=== PATIENT | male | born 1995 | race American Indian/Alaskan Native ===

== ENCOUNTER 2016-12-28 02:19 | Emergency (ER) | payer SELFPAY ==
[2016-12-28 03:06] VITALS: BP 157/87
[2016-12-28] MEDS ORDERED: BABY ASPIRIN PO ONE (03:07)
[2016-12-28 03:38] LABS: Basophils % (Auto) 0.4 % (0.0-1.8); Eosinophils % (Auto) 0.3 % (0.0-4.3); Hematocrit 47.4 % (35.5-45.6); Hemoglobin 16.4 gm/dl (11.8-15.2); Mean Corpuscular HGB Conc 35 % (32-34); Mean Corpuscular Hemoglobin 33 pg (28-32); Mean Corpuscular Volume 94 fl (84-94); Platelet Count 275 K/mm3 (140-440); Red Blood Count 5.06 M/mm3 (3.65-5.03); Red Cell Distribution Width 12.6 % (13.2-15.2); White Blood Count 13.3 K/mm3 (4.5-11.0)
[2016-12-28 03:44] LABS: Anion Gap 20 mmol/L; Blood Urea Nitrogen 12 mg/dL (9-20); Calcium 9.2 mg/dL (8.4-10.2); Carbon Dioxide 20 mmol/L (22-30); Chloride 101.6 mmol/L (98-107); Glucose 100 mg/dL (75-100); Sodium 138 mmol/L (137-145)
--- NOTE | 2016-12-29 21:15 | ED Elopement Review ---
ED Pt Elopement review - Results review Lab results: Laboratory Tests 12/28/16 12/28/16 03:12 03:12 WBC 13.3 H RBC 5.06 H Hgb 16.4 H Hct 47.4 H MCV 94 MCH 33 H MCHC 35 H RDW 12.6 L Plt Count 275 Lymph % (Auto) 8.4 L [place] % (Auto) 5.6 Eos % (Auto) 0.3 Baso % (Auto) 0.4 Lymph # 1.1 L [place] # 0.7 Eos # 0.0 Baso # 0.0 Seg Neutrophils % 85.3 H Seg Neutrophils # 11.3 H Sodium 138 Potassium 4.0 Chloride 101.6 Carbon Dioxide 20 L Anion Gap 20 BUN 12 Creatinine 1.0 Estimated GFR > 60 BUN/Creatinine Ratio 12.00 Glucose 100 Calcium 9.2 Troponin T < 0.010 - Call Back decision Pt Call Back Decision: Call pt to return to ED BIMAL (HR of 120 x 2 checks)
== END 2016-12-28 04:37 | disposition left against medical advice (07) ==
LOC: ED 02:19
DX: R07.9 Chest pain, unspecified (principal); R06.02 Shortness of breath; Z53.21 Procedure and treatment not carried out due to patient leaving prior to being seen by health care provider
CPT/HCPCS: 36415; 80048; 84484; 85025; 93005; 93010

== ENCOUNTER 2017-10-16 15:05 | Emergency (ER) | payer SELFPAY ==
[2017-10-16 17:04] LABS: Bacteria,Urine 1+ /HPF (Negative); Bilirubin,Urine NEG (Negative); Blood,Urine NEG (Negative); Color,Urine Yellow (Yellow); Mucus,Urine FEW /HPF; Nitrite,Urine NEG (Negative); Protein,Urine <15 mg/dL mg/dL (Negative)
[2017-10-16 19:18] VITALS: BP 140/91
--- NOTE | 2017-10-16 20:09 | Emergency Department Report ---
HPI - General Chief Complaint: Urogenital-Male Time Seen by Provider: 10/16/17 19:40 - HPI HPI: Patient present with burning with urination and reported that he had discharged today. He said he had sex a couple days ago and now he has discharge with odor. Denies any back pain or abdominal pain. Denies any fever or chills. Denies any nausea or vomiting. He states that he doesn't know if the person that he had sex with his having symptoms. He said it mccain when he urinates. Nothing makes it better and nothing makes it worse. Discharge is yellowish in color. ED Past Medical Hx - Past Medical History Previous Medical History?: No - Surgical History Past Surgical History?: No - Family History Family history: no significant - Social History Smoking Status: Never Smoker Substance Use Type: None - Medications Home Medications: Home Medications Medication Instructions Recorded Confirmed Last Taken Type Ciprofloxacin HCl [Ciprofloxacin 500 mg PO Q12H 10 Days #20 tab 10/16/17 Unknown Rx TAB] ED Review of Systems ROS: Stated complaint: STD CHECK Other details as noted in HPI Comment: All other systems reviewed and negative Constitutional: no symptoms reported Eyes: denies: eye pain, vision change ENT: denies: throat pain, congestion Respiratory: no symptoms reported Cardiovascular: denies: chest pain, palpitations, dyspnea on exertion, edema, syncope, paroxysmal nocturnal dyspnea Gastrointestinal: denies: abdominal pain, nausea, vomiting, diarrhea, constipation, hematochezia Genitourinary: dysuria, discharge. denies: urgency, frequency, hematuria, testicular pain, testicular mass Musculoskeletal: denies: back pain, joint swelling, arthralgia, myalgia Skin: denies: rash Neurological: denies: headache, weakness, numbness, paresthesias, confusion, abnormal gait, vertigo Physical Exam - Physical Exam Vital Signs: Vital Signs 10/16/17 10/16/17 15:36 19:17 Temperature 98.8 F 98.1 F Pulse Rate 82 106 H Respiratory 16 Rate Blood Pressure 132/81 Blood Pressure 140/91 [Right] O2 Sat by Pulse 99 96 Oximetry Vital Signs 10/16/17 10/16/17 10/16/17 15:36 19:17 21:27 Temperature 98.8 F 98.1 F Pulse Rate 82 106 H 92 H Respiratory 16 Rate Blood Pressure 132/81 Blood Pressure 140/91 [Right] O2 Sat by Pulse 99 96 Oximetry General: This is a 22-year-old male well-nourished well-developed in no acute distress. Physical Exam: Head: Normocephalic, atraumatic, no abrasion, no bruising and no contusion. Eyes: Biateral pupils equal and reactive to light, bilateral EOM intact.. Bilateral conjunctival and sclera without injection, normal accommodation. No nystagmus Mouth: Moist, no pharyngeal exudate or erythema. No peritonsillar abscesses. Uvula is midline and oral airways patent. Neck: Supple, No Cervical adenopathy, full range of motion and no C-spine tenderness. No swelling or tracheal deviation normal reflexes Cardiovascular: S1, S2. Regular rate and rhythm. No murmur. Capillary refill is less then 3 seconds. Lungs: Clear to auscultate bilaterally. No rhonchi, wheezes or rales. No chest wall tenderness. No chest contusion. No bruising to chest. Abdomen: Non-tender to palpate in all quadrants, no guarding or rebound tenderness, positive bowel sounds in all quadrants. No CVA tenderness. No hernia, bruit or mass. No rigidity or distention. Extremities: No clubbing, cyanosis or edema. +2 pulses. No neurovascular compromise Skin: Clean, dry and intact. No rash or lesions. iculties. Ambulates without any difficulties. Psych: Normal mood and behavior ED Course Vital Signs 10/16/17 10/16/17 15:36 19:17 Temperature 98.8 F 98.1 F Pulse Rate 82 106 H Respiratory 16 Rate Blood Pressure 132/81 Blood Pressure 140/91 [Right] O2 Sat by Pulse 99 96 Oximetry Vital Signs 10/16/17 10/16/17 10/16/17 15:36 19:17 21:27 Temperature 98.8 F 98.1 F Pulse Rate 82 106 H 92 H Respiratory 16 Rate Blood Pressure 132/81 Blood Pressure 140/91 [Right] O2 Sat by Pulse 99 96 Oximetry - Reevaluation(s) Reevaluation #1: 10/16/17 21:29 Patient treated with Rocephin 1 g IM to cover UTI and gonorrhea, Flagyl 2 g by mouth to cover for Trichomonas and Zithromax 1 g by mouth to cover chlamydia. No adverse reaction from medication ED Medical Decision Making - Lab Data Lab Results 10/16/17 Range/Units 16:54 Urine Color Yellow (Yellow) Urine Turbidity Clear (Clear) Urine pH 5.0 (5.0-7.0) Ur Specific [place] 1.029 (1.003-1.030) Urine Protein <15 mg/dl (Negative) mg/dL Urine Glucose (UA) Neg (Negative) mg/dL Urine Ketones Neg (Negative) mg/dL Urine Blood Neg (Negative) Urine Nitrite Neg (Negative) Urine Bilirubin Neg (Negative) Urine Urobilinogen 4.0 (<2.0) mg/dL Ur Leukocyte Esterase Mod (Negative) Urine WBC (Auto) 39.0 H (0.0-6.0) /HPF Urine RBC (Auto) 5.0 (0.0-6.0) /HPF Urine Bacteria (Auto) 1+ (Negative) /HPF Urine Mucus Few /HPF Urine culture pending Gonorrhea and chlamydia pending - Medical Decision Making ED course: Patient came in her port that he is having penile discharge and urinary burning F than having sex a few days ago. He is requested to be treated for STD. Urinalysis revealed patient with urinary tract infection and urine culture sent and pending. Gonorrhea and chlamydia collected and sent. Patient treated with Rocephin 1 g IM to cover urinary tract infection and gonorrhea, Zithromax 1 g by mouth to cover chlamydia and Flagyl 2 g by mouth to cover Trichomonas. Patient was discharged home in stable condition with prescription for ciprofloxacin and to practice safe sex and follow up with health department in 7-10 days to have repeat STD testing. He knows that he needs to refrain from having sexual activity for the next 2 weeks and that he should not drink any all calm over the next 1 weeks and I'll call and Flagyl has negative reaction. He had no adverse reaction to medication. He was undescended discharge instruction and treatment plan discharge home in stable condition Critical care attestation.: If time is entered above; I have spent that time in minutes in the direct care of this critically ill patient, excluding procedure time. ED Disposition Clinical Impression: Penile discharge, Dysuria, Concern about STD in male without diagnosis Acute cystitis Qualifiers: Hematuria presence: without hematuria Qualified Code(s): N30.00 - Acute cystitis without hematuria Disposition: TO HOME OR SELFCARE Is pt being admited?: No Does the pt Need Aspirin: No Condition: Stable Instructions: Sexually Transmitted Diseases (ED), Safe Sex (ED), Urinary Tract Infection in Men (ED), Dysuria (ED) Additional Instructions: Please practice safe sex Follow-up with your primary care physician or [facility]10 days to get rechecked. You were treated in emergency room for Trichomonas, gonorrhea and chlamydia. You have a urinary tract infection and will be treated with ciprofloxacin for 10 days. Please take as instructed Please do not have any sexual activity for the next 2 weeks. Gonorrhea and Chlamydia test was sent today and result takes 5-7 days to be resulted so he can return to the emergency room or have your primary care health Department request results. Please do not drink any alcohol over the next 5 days as medication given for Trichomonas can have a negative reaction with alcohol. Prescriptions: Ciprofloxacin HCl [Ciprofloxacin TAB] 500 mg PO Q12H 10 Days #20 tab Referrals: [facility] [Outside] - 7-10 days [facility] [Outside] - 3-5 Days Forms: Work/School Release Form(ED)
[2017-10-16] MEDS ORDERED: ROCEPHIN IM STA (20:42)
[2017-10-16] MEDS ORDERED: XYLOCAINE 1% MPF 5 mL INFILTRATI ONE (20:42)
[2017-10-16] MEDS ORDERED: ZITHROMAX PO ONE (20:42)
[2017-10-16] MEDS ORDERED: FLAGYL PO ONE (20:42)
== END 2017-10-16 21:46 | disposition home or self-care (01) ==
LOC: ED 15:05
DX: N30.00 Acute cystitis without hematuria (principal)
CPT/HCPCS: 81001; 87086; 87591; 96372; 99283; J0696